=== PATIENT | male | born 1955 | race African-American/Black ===

== ENCOUNTER 2020-03-02 09:00 | Emergency (ER) | payer MEDICAID ==
[~2020-03-02] VITALS: Ht 172.7 cm; Wt 65.0 kg
[2020-03-02 09:23] VITALS: BP 150/85
[2020-03-02] MEDS ORDERED: BACITRACIN ZINC OINT UDPKT TOP ONE (09:45)
[2020-03-02] MEDS ORDERED: SULFAMETHOXAZOLE/TRIMETHOPRIM 800/160MG TABLET PO ONE (10:00)
[2020-03-02] MEDS ORDERED: CEPHALEXIN 250MG CAPSULE PO ONE (10:00)
== END 2020-03-02 11:35 | disposition home or self-care (01) ==
LOC: ER 09:00
DX: Z48.00 Encounter for change or removal of nonsurgical wound dressing (principal); M79.89 Other specified soft tissue disorders; R03.0 Elevated blood-pressure reading, without diagnosis of hypertension
CPT/HCPCS: 93971; 99284

== ENCOUNTER 2020-03-08 09:18 | Emergency (ER) | payer MEDICAID ==
[~2020-03-08] VITALS: Ht 154.9 cm; Wt 60.0 kg
[2020-03-08] MEDS ORDERED: BACITRACIN 15GM TUBE TOP ONE (10:00)
[2020-03-08 10:46] VITALS: BP 107/82
== END 2020-03-08 10:57 | disposition home or self-care (01) ==
LOC: ER 09:18
DX: S51.012D Laceration without foreign body of left elbow, subsequent encounter (principal); X58.XXXD Exposure to other specified factors, subsequent encounter; Z48.00 Encounter for change or removal of nonsurgical wound dressing; Z98.890 Other specified postprocedural states
CPT/HCPCS: 99282

== ENCOUNTER 2020-03-16 08:08 | Emergency (ER) | payer MEDICAID ==
[~2020-03-16] VITALS: Ht 170.2 cm; Wt 73.0 kg
[2020-03-16] MEDS ORDERED: SULF-288 PO (08:26)
[2020-03-16] MEDS ORDERED: CEPH500C2 PO (08:26)
[2020-03-16] MEDS ORDERED: BACITRACIN ZINC OINT UDPKT TOP ONE (10:30)
[2020-03-16 10:40] VITALS: BP 135/69
== END 2020-03-16 10:49 | disposition home or self-care (01) ==
LOC: ER 08:08
DX: T81.30XA Disruption of wound, unspecified, initial encounter (principal); Y84.8 Other medical procedures as the cause of abnormal reaction of the patient, or of later complication, without mention of misadventure at the time of the procedure; Y92.89 Other specified places as the place of occurrence of the external cause
CPT/HCPCS: 73080; 99283

== ENCOUNTER 2020-03-23 12:20 | Emergency (ER) | payer MEDICAID ==
[~2020-03-23] VITALS: Ht 165.1 cm; Wt 66.0 kg
[~2020-03-23 12:20] MED LIST: CEPH500C2 PO; SULF-288 PO
[2020-03-23] MEDS ORDERED: CEPHALEXIN 250MG CAPSULE PO ONE (14:30)
[2020-03-23 15:08] VITALS: BP 124/77
== END 2020-03-23 15:09 | disposition home or self-care (01) ==
LOC: ER 12:20
DX: B35.3 Tinea pedis (principal); L08.9 Local infection of the skin and subcutaneous tissue, unspecified; I10 Essential (primary) hypertension
CPT/HCPCS: 99283

== ENCOUNTER 2020-03-26 13:03 | Emergency (ER) | payer MEDICAID ==
[~2020-03-26] VITALS: Ht 165.1 cm; Wt 64.0 kg
[2020-03-26 13:08] VITALS: BP 136/100
== END 2020-03-26 13:43 | disposition home or self-care (01) ==
LOC: ER 13:18
DX: J30.9 Allergic rhinitis, unspecified (principal)
CPT/HCPCS: 99283